=== PATIENT | male | born 1985 | race Caucasian/White ===

== ENCOUNTER 2016-03-24 17:03 | Inpatient (IN) | payer OTHER ==
[~2016-03-24] VITALS: Ht 175.3 cm; Wt 92.6 kg
[2016-03-24 17:57] LABS: HEMATOCRIT 41.7 % (38.0-50.0); MCH 30.4 PG (29.0-34.0); MCV 86.9 FL (86-99); MEAN PLAT.VOLUME 9.7 uM^3 (9.0-12.4); PLATELET COUNT 260 K/uL (156-360); RBC DIS.WIDTH-SD 40.1 % (39-53); WHITE BLOOD COUNT 10.2 K/uL (4.1-10.2)
[2016-03-24 18:03] LABS: ADD MIUA? NO; BILIRUBIN NEGATIVE; BLOOD NEGATIVE; COLOR YELLOW ((YELLOW)); GLUCOSE (STRIP) NEGATIVE; KETONES NEGATIVE; LEUKOCYTES NEGATIVE; NITRITE NEGATIVE; PH, URINE 8.5 (5-8); PROTEIN (STRIP) NEGATIVE; SPECIFIC GRAVITY 1.015 (1.000-1.030); UROBILINOGEN 0.2 MG/DL (0.2-1.0)
[2016-03-24 18:16] LABS: CHLORIDE 107 mEq/L (99-109); POTASSIUM 4.1 mEq/L (3.7-5.4); SODIUM 142 mEq/L (136-147)
[2016-03-24 18:19] LABS: GLUCOSE 103 mg/dL (70-99)
[2016-03-24 18:20] LABS: ANION GAP 9 MEQ/L (2-14); TOTAL BILIRUBIN 0.4 mg/dL (0.0-1.0)
[2016-03-24 18:21] LABS: SERUM ETHYL ALCOHOL < 10 mg/dL
[2016-03-24 18:22] LABS: ALKALINE PHOSPHATASE 89 IU/L (3-129); GFR ESTIMATE (CALCULATED) > 59 mL/min/
[2016-03-24 18:23] LABS: UREA NITROGEN (BUN) 11 mg/dL (9-23)
[2016-03-24 18:27] LABS: AMPHETAMINE NEGATIVE (500 ng/mL); BENZODIAZEPINES NEGATIVE (150 ng/mL); COCAINE NEGATIVE (150 ng/mL); METHADONE PRESUMPTIVE POSITIVE (200 ng/mL); METHAMPHETAMINE NEGATIVE (500 ng/mL); OPIATES (MORPHINE) PRESUMPTIVE POSITIVE (100 ng/mL); PHENCYCLIDINE NEGATIVE (25 ng/mL); THC CANNABINOIDS PRESUMPTIVE POSITIVE (50 ng/mL); TRICYCLIC ANTIDEPRESSANTS NEGATIVE (300 ng/mL)
[2016-03-24 18:28] LABS: ADD MEDTOX COMMENT Y; BARBITURATES NEGATIVE (200 ng/mL); INTERNAL CONTROLS VALID? YES; OXYCODONE NEGATIVE (100 ng/mL); PROPOXYPHENE NEGATIVE (300 ng/mL)
[2016-03-25 12:25] VITALS: BP 132/64
[2016-03-25 12:56] VITALS: BP 132/66
[2016-03-25 15:35] VITALS: BP 115/73
[2016-03-26 08:05] VITALS: BP 89/71
[2016-03-26 08:55] VITALS: BP 89/71
== END 2016-03-26 10:08 | disposition home or self-care (01) | DRG 885 ==
LOC: EME 17:03 → EDOF 03-25 10:36 → 1WEST 03-25 12:36
PROVIDERS: Emergency Medicine
DX: F31.32 Bipolar disorder, current episode depressed, moderate (principal); R45.851 Suicidal ideations; F11.23 Opioid dependence with withdrawal; F17.200 Nicotine dependence, unspecified, uncomplicated; F12.20 Cannabis dependence, uncomplicated
CPT/HCPCS: 80053; 81003; 84999; 85027; 86703; 86706; 87340; 90837; 99281; 99285; G0480; J0574; J2405; Q0169; Q0177